=== PATIENT | female | born 1940 | race Caucasian/White ===

== ENCOUNTER 2023-01-19 12:03 | Emergency (ER) | payer OTHER ==
[~2023-01-19] VITALS: Ht 149.9 cm; Wt 54.5 kg
[2023-01-19] MEDS ORDERED: GABA-1216 PO (12:14)
[2023-01-19] MEDS ORDERED: FURO20 PO (12:14)
[2023-01-19] MEDS ORDERED: SITA100 PO (12:14)
[2023-01-19] MEDS ORDERED: LISI-892 PO (12:14)
[2023-01-19] MEDS ORDERED: CARV3 PO (12:14)
[2023-01-19] MEDS ORDERED: APIX2.5T PO (12:14)
[2023-01-19] MEDS ORDERED: METF-1211 PO (12:14)
[2023-01-19] MEDS ORDERED: ATOR40TA28 PO (12:14)
[2023-01-19] MEDS ORDERED: CLOP75TA60 PO (12:14)
[2023-01-19] MEDS ORDERED: MAGN400T57 PO (12:14)
[2023-01-19] MEDS ORDERED: TraMADol HCL 50 MG TABLET PO ONE (13:00)
[2023-01-19 13:17] LABS: BASOPHILS % (AUTO) 0.4 % (0.0-2.0); EOSINOPHILS % (AUTO) 1.1 % (1.0-6.0); HEMATOCRIT 42.6 % (36-46); LYMPHOCYTES # (AUTO) 2.3 K/uL (1.0-4.8); LYMPHOCYTES % (AUTO) 33.6 % (22.0-44.0); MEAN CORPUSCULAR HEMOGLOBIN 27.8 pg (26.0-34.0); MEAN CORPUSCULAR HGB CONC 32.7 G/dL (31.0-37.0); MEAN CORPUSCULAR VOLUME 85 fL (80-100); MONOCYTES # (AUTO) 0.4 K/uL (0.1-1.0); MONOCYTES % (AUTO) 5.9 % (2.0-9.0); PLATELET COUNT (AUTO) 193 K/uL (150-450); RED BLOOD CELL COUNT(AUTO) 5.03 MIL/uL (4.00-5.20); RED CELL DISTRIBUTION WIDTH 13.8 % (11.5-14.5)
[2023-01-19 13:30] LABS: CALCIUM, TOTAL 9.4 mg/dL (8.8-10.5); CREATININE 0.97 mg/dL (0.60-1.30); POTASSIUM 3.9 mmol/L (3.5-5.1)
[2023-01-19 13:36] LABS: ALBUMIN 3.6 g/dL (3.4-5.0); BILIRUBIN,TOTAL 0.5 mg/dL (0.1-1.0); TOTAL PROTEIN, SERUM 7.6 g/dL (6.4-8.2)
[2023-01-19] MEDS ORDERED: LIDOCAINE 5% TRANSDERMAL PATCH TD ONE (16:45)
[2023-01-19] MEDS ORDERED: TRAM-559 PO (16:51)
[2023-01-19] MEDS ORDERED: LIDO700A15 TP (16:51)
[2023-01-19 17:05] VITALS: BP 120/68
== END 2023-01-19 17:23 | disposition home or self-care (01) ==
LOC: EMS 12:23
DX: S32.019A Unspecified fracture of first lumbar vertebra, initial encounter for closed fracture (principal); I11.0 Hypertensive heart disease with heart failure; I50.9 Heart failure, unspecified; E11.9 Type 2 diabetes mellitus without complications; E78.00 Pure hypercholesterolemia, unspecified
CPT/HCPCS: 71045; 72072; 72100; 80053; 82550; 83880; 84484; 85025; 85610; 85730; 93005; 99285; 36415-L1; 36415-TC